=== PATIENT | male | born 1980 | race Caucasian/White ===

== ENCOUNTER 2016-07-25 17:41 | Emergency (ER) | payer OTHER ==
[~2016-07-25] VITALS: Wt 93.0 kg
[2016-07-25 17:48] VITALS: Wt 93.0 kg
[2016-07-25] MEDS ORDERED: WARF5TAB72 PO (18:00)
[2016-07-25] MEDS ORDERED: COU3 PO (18:01)
--- NOTE | 2016-07-25 18:24 | ERD ---
ER Documentation Chief Complaint Date/Time DATE: 07/25/16 TIME: 18:22 Chief Complaint MED REFILL WARFARIN HPI This patient is a 36-year-old male with history of aortic valve replacement in 2010 presenting to the emergency department for request to have warfarin refilled. The patient has not missed a dose. The patient takes 8 mg per day. The patient denies any recent bleeding and his INR is checked by his primary care physician and jelly maker. He was unable to get an appointment with them for medication refill. The patient is relocated and looking for a new primary care physician and jelly maker. The patient denies all complaints currently. ROS All systems reviewed and are negative except as per history of present illness. Medications Home Meds Active Scripts Warfarin Sod (Coumadin) 3 Mg Tab, 3 MG PO DAILY, #30 TAB Prov:CONRADO LOVETT PA-C 07/25/16 Warfarin Sodium* (Coumadin*) 5 Mg Tablet, 5 MG PO DAILY, #30 TAB Prov:CONRADO LOVETT PA-C 07/25/16 FmHx Noncontributory for chief complaint Physical Exam Vitals Vital Signs Date Time Temp Pulse Resp B/P Pulse Ox O2 Delivery O2 Flow Rate FiO2 07/25/16 17:48 98.0 84 18 130/85 99 Physical Exam Const: The patient is resting comfortably no acute distress. Head: Atraumatic Eyes: Normal Conjunctiva ENT: Normal External Ears, Nose and Mouth. Neck: Full range of motion..~ No meningismus. Resp: Clear to auscultation bilaterally Cardio: Regular rate and rhythm, no murmurs Abd: Soft, non tender, non distended. Normal bowel sounds Skin: No petechiae or rashes Back: No midline or flank tenderness Ext: No cyanosis, or edema Neur: Awake and alert Psych: Normal Mood and Affect Procedures/MDM 36-year-old male presents with request for medication refill. Physical examination shows no acute findings. I will prescribe the patient is warfarin exactly as prescribed by his primary care physician and jelly maker. The patient denies all complaints currently. Patient was advised to have his INR checked regularly. The patient was given resources to find a new primary care physician. He understands the risks and benefits of the medication as explained by his primary care physician. The patient was given strict ER return precautions and he understands. Departure Diagnosis: Primary Impression: Encounter for medication refill Condition: Fair Patient Instructions: Taking Medicine Safely Referrals: [facility] YOU HAVE RECEIVED A MEDICAL SCREENING EXAM AND THE RESULTS INDICATE THAT YOU DO NOT HAVE A CONDITION THAT REQUIRES URGENT TREATMENT IN THE EMERGENCY DEPARTMENT. FURTHER EVALUATION AND TREATMENT OF YOUR CONDITION CAN WAIT UNTIL YOU ARE SEEN IN YOUR DOCTORS OFFICE WITHIN THE NEXT 1-2 DAYS. IT IS YOUR RESPONSIBILITY TO MAKE AN APPOINTMENT FOR FOLOW-UP CARE. IF YOU HAVE A PRIMARY DOCTOR --you should call your primary doctor and schedule an appointment IF YOU DO NOT HAVE A PRIMARY DOCTOR YOU CAN CALL OUR PHYSICIAN REFERRAL HOTLINE AT IF YOU CAN NOT AFFORD TO SEE A PHYSICIAN YOU CAN CHOSE FROM THE FOLLOWING [facility] [address] [facility] [address] [facility] [address] [facility] [address] [facility] [address] [facility] [facility] [address] Additional Instructions: Follow up with your PCP within the next 1-3 days for a more thorough evaluation and a possible referral to a specialist. Return the the emergency department immediately if symptoms worsen or change. If you have any questions regarding medications, ask your pharmacist or us before you leave. If any adverse reactions, occur while taking your medications, discontinue the treatment and return to the emergency department immediately. If any new or worsening symptoms, uncontrolled fevers, or other unexplained symptoms occur, return to the emergency department immediately. Take your medications as directed, and complete the entire course of treatment. CONRADO LOVETT PA-C Jul 25, 2016 18:24
== END 2016-07-25 18:02 | disposition home or self-care (01) ==
LOC: FTE 17:41
DX: Z76.0 Encounter for issue of repeat prescription (principal); Z79.01 Long term (current) use of anticoagulants
CPT/HCPCS: 99281

== ENCOUNTER 2016-08-29 20:13 | Emergency (ER) | payer OTHER ==
[~2016-08-29] VITALS: Ht 167.6 cm; Wt 92.5 kg
[~2016-08-29 20:13] MED LIST: COU3 PO; WARF5TAB72 PO
[2016-08-29 20:27] VITALS: Ht 167.6 cm; Wt 92.5 kg
[2016-08-29] MEDS ORDERED: WARF5TAB72 PO (21:14)
[2016-08-29] MEDS ORDERED: COU2 PO (21:15)
--- NOTE | 2016-08-29 21:23 | ERD ---
ER Documentation Chief Complaint Date/Time DATE: 08/29/16 TIME: 21:17 Chief Complaint MEDICATION WARFARIN REFILL FOR HEART VALVE REPLACEMENT, NO PRIMARY PROVIDER HPI Patient is a 36-year-old male with history of aortic valve replacement 2010 presenting to the ED for a refill of warfarin. Patient states that he has been taking 8 mg warfarin daily. Patient states he ran out of this 3 mg tablets yesterday. Patient reports taking 5 mg yesterday. Patient denies any fevers, chills, chest pain, shortness of breath, abdominal pain, nausea, vomiting, rectal bleeding. Patient does not have a primary care physician due to recent insurance changes. Patient states that he has an appointment with a primary care physician in [place] on September 07. ROS All systems reviewed and are negative except as per history of present illness. Medications Home Meds Active Scripts Warfarin Sod (Coumadin) 2 Mg Tab, 2 MG PO DAILY, #30 TAB Prov:CHANEL CARVAJAL PA-C 08/29/16 Warfarin Sodium* (Coumadin*) 5 Mg Tablet, 5 MG PO DAILY, #30 TAB Prov:CHANEL CARVAJAL PA-C 08/29/16 Warfarin Sod (Coumadin) 3 Mg Tab, 3 MG PO DAILY, #30 TAB Prov:CONRADO LOVETT PA-C 07/25/16 Warfarin Sodium* (Coumadin*) 5 Mg Tablet, 5 MG PO DAILY, #30 TAB Prov:CONRADO LOVETT PA-C 07/25/16 Allergies Allergies: Uncoded Allergies: PENICILLIN (Allergy, Intermediate, hives, 08/29/16) PMhx/Soc History of Surgery: Yes (Heart valve replaced 2010) Anesthesia Reaction: No Hx Neurological Disorder: No Hx Respiratory Disorders: No Hx Cardiac Disorders: Yes (Heart valve replaced 2010, high cholesterol) Hx Psychiatric Problems: No Hx Miscellaneous Medical Probl: No Hx Alcohol Use: Yes (social only) Hx Substance Use: No Hx Tobacco Use: No Smoking Status: Never smoker FmHx Family History: No diabetes Physical Exam Vitals Vital Signs Date Time Temp Pulse Resp B/P Pulse Ox O2 Delivery O2 Flow Rate FiO2 08/29/16 20:27 98.7 95 14 141/81 97 Physical Exam GENERAL: Well-developed, well-nourished male. Appears in no acute distress. HEAD: Normocephalic, atraumatic. EYES: Pupils are equally reactive bilaterally. EOMs grossly intact. No conjunctival erythema. ENT: Moist mucous membranes. No uvula deviation. No kissing tonsils. NECK: Supple. No meningismus. Normal range of motion of the neck. LUNG: Clear to auscultation bilaterally. No rhonchi, wheezing, rales or coarse breath sounds. HEART: Regular rate and rhythm. No murmurs, rubs or gallops. ABDOMEN: Soft, nontender, and nondistended. Positive bowel sounds in all four quadrants. No rebound tenderness, no guarding. (-) McBurney's point tenderness. BACK: No midline tenderness. EXTREMITIES: Equal pulses bilaterally. No peripheral clubbing, cyanosis or edema. No unilateral leg swelling. NEUROLOGIC: Alert and oriented. Moving all four extremities without any difficulty. Normal speech. Steady gait. SKIN: Normal color. Warm and dry. No rashes or lesions. Procedures/MDM MEDICAL DECISION MAKING: Patient is a 36-year-old male who presents for refill of warfarin. Patient reported taking 8 mg daily. Patient states he ran out of his 3 mg tablets yesterday thus he only took 5 mg yesterday.. Vital signs were reviewed. Patient is afebrile. Patient was not hypoxic. Patient was hemodynamically stable. I discussed the patient's case with my supervising physician Dr. Valdivia. Given that patient only took 5 mg of warfarin yesterday, patient INR is likely to be subtherapeutic at this time. Patient was advised to take his medication and follow with the primary care physician for INR testing. Patient provided with referral information. Patient was explained the risks of taking warfarin with no monitoring. Patient understands risks and agrees to follow-up with the primary care physician. Patient stated that he does have an appointment with primary care physician on September 07. PRESCRIPTION: Warfarin 3 mg tabs #30, warfarin 5 mg tabs #30, 0 refills on both prescription DISCHARGE: At this time, patient is stable for discharge and outpatient management. I have instructed the patient to follow-up with his/her primary care physician in 1-2 days. I have discussed with the patient the possibility of needing to see a specialist for further workup and imaging studies if symptoms persist. I have instructed the patient to promptly return to the ER for any new or worsening symptoms including increased pain, fever, nausea, vomiting, weakness or LOC. The patient and/or family expressed understanding of and agreement with this plan. All questions were answered. Home care instructions were provided. Departure Diagnosis: Primary Impression: Encounter for medication refill Condition: Stable Patient Instructions: Taking Medicine Safely Referrals: [facility] YOU HAVE RECEIVED A MEDICAL SCREENING EXAM AND THE RESULTS INDICATE THAT YOU DO NOT HAVE A CONDITION THAT REQUIRES URGENT TREATMENT IN THE EMERGENCY DEPARTMENT. FURTHER EVALUATION AND TREATMENT OF YOUR CONDITION CAN WAIT UNTIL YOU ARE SEEN IN YOUR DOCTORS OFFICE WITHIN THE NEXT 1-2 DAYS. IT IS YOUR RESPONSIBILITY TO MAKE AN APPOINTMENT FOR FOLOW-UP CARE. IF YOU HAVE A PRIMARY DOCTOR --you should call your primary doctor and schedule an appointment IF YOU DO NOT HAVE A PRIMARY DOCTOR YOU CAN CALL OUR PHYSICIAN REFERRAL HOTLINE AT IF YOU CAN NOT AFFORD TO SEE A PHYSICIAN YOU CAN CHOSE FROM THE FOLLOWING [facility] [address] [facility]. [facility] [address] [facility] [facility] [facility] [address] [facility] [address] [facility] [address] [facility]. [facility] [address] [facility]. [facility] YOU HAVE RECEIVED A MEDICAL SCREENING EXAM AND THE RESULTS INDICATE THAT YOU DO NOT HAVE A CONDITION THAT REQUIRES URGENT TREATMENT IN THE EMERGENCY DEPARTMENT. FURTHER EVALUATION AND TREATMENT OF YOUR CONDITION CAN WAIT UNTIL YOU ARE SEEN IN YOUR DOCTORS OFFICE WITHIN THE NEXT 1-2 DAYS. IT IS YOUR RESPONSIBILITY TO MAKE AN APPOINTMENT FOR FOLOW-UP CARE. IF YOU HAVE A PRIMARY DOCTOR --you should call your primary doctor and schedule and appointment IF YOU DO NOT HAVE A PRIMARY DOCTOR YOU CAN CALL OUR PHYSICIAN REFERRAL HOTLINE AT . IF YOU CAN NOT AFFORD TO SEE A PHYSICIAN YOU CAN CHOSE FROM THE FOLLOWING [facility] INSTITUTIONS: [facility] [address] [place] [address] [facility] [address] [place] [address] [facility] + [address] [address] Additional Instructions: Call your primary care doctor TOMORROW for an appointment during the next 1-2 days.See the doctor sooner or return here if your condition worsens before your appointment time. Follow up with your primary care physician as scheduled on September 07. CHANEL CARVAJAL PA-C Aug 29, 2016 21:23
[2016-08-29] MEDS ORDERED: COU3 PO (21:26)
== END 2016-08-29 21:30 | disposition home or self-care (01) ==
LOC: FTE 20:13
DX: Z76.0 Encounter for issue of repeat prescription (principal); Z79.01 Long term (current) use of anticoagulants
CPT/HCPCS: 99281